=== PATIENT | male | born 1945 | race Caucasian/White ===

== ENCOUNTER 2018-08-18 08:14 | Day surgery (SDC) | payer MEDICARE ==
--- NOTE | 2018-02-09 09:36 | HP ---
PREOPERATIVE HISTORY AND PHYSICAL: DATE OF ADMISSION/SURGERY: 02/24/18 DATE OF OFFICE VISIT/ENCOUNTER: 01/30/18 ATTENDING SURGEON: Ruby Nelson MD * (DICTATED BY EVER MELENDEZ) PROCEDURE: Left wrist carpal tunnel release. CHIEF COMPLAINT: Numbness and tingling in the left hand. HISTORY OF PRESENT ILLNESS: This is a 73-year-old male who complains of numbness and tingling in his left hand that has been ongoing for several years now. He had a nerve conduction study done in 2014, which showed left carpal tunnel syndrome, moderate at that time. Symptoms have increasingly worsened over time to the point that the patient would like to proceed with surgical intervention. He is awakened at night by his symptoms. He has sometimes worn a brace, which is helpful. He underwent a right carpal tunnel release back in 2014 and now will proceed with a left carpal tunnel release. The patient has a cardiac history including atrial fibrillation, he is on Coumadin. We will have him remain on Coumadin throughout the perioperative period and we will get clearance from his enologist prior to proceeding with surgery. PAST MEDICAL HISTORY: 1. Atrial fibrillation. 2. Hypertension. 3. Gout. 4. High cholesterol. 5. History of stroke approximately 20 years ago. 6. History of cardiac murmur. PAST SURGICAL HISTORY: 1. Right carpal tunnel release. 2. Pilonidal cystic excision. 3. Oral surgery. 4. Sinus surgery. 5. Melanoma lesion removed. No known anesthesia problems. CURRENT MEDICATIONS: 1. Allergy Relief 1 tab daily p.r.n. 2. Allopurinol 100 mg twice a day. 3. Aspirin 81 mg daily. 4. Atorvastatin calcium 40 mg half a tab daily. 5. Cinnamon 500 mg 2 tabs daily. 6. Clonidine HCl ER 0.1 mg twice a day. 7. Coumadin 3 mg Tuesday, Tuesday and 6 mg Tuesday, Tuesday, , and Tuesday. 8. Diltiazem CD 240 mg daily. 9. Enalapril maleate 20 mg twice a day. 10. Furosemide 20 mg daily. 11. Garlic 1000 mg twice a day. 12. [place] mont[place] 1500 mg 1 tablet twice a day. 13. [place]-3, 1000 mg twice a day. 14. Spironolactone 25 mg 1/2 tab daily. 15. Turmeric daily. 16. Vitamin C 1000 mg daily. 17. Vitamin D 1000 mg 4 drops in water daily. 18. Vitamin E 400 mg 1 tab daily. ALLERGIES: No known drug allergies. FAMILY MEDICAL HISTORY: Diabetes and prostate cancer. SOCIAL HISTORY: The patient is employed as a associate financial analyst. He is a former smoker, he quit smoking approximately 35 years ago, prior to that he smoked for approximately 10 years, 2 packs per day. He denies recreational drug use. He drinks alcohol on occasion. REVIEW OF SYSTEMS: Positive for heart palpitations, otherwise negative for general, cephalic, other cardiovascular, respiratory, GI, , other musculoskeletal, integumentary, endocrine, neurologic, and hematologic symptoms. Infectious disease: Negative for history of MRSA, hepatitis C. PHYSICAL EXAMINATION GENERAL: Well-developed, well-nourished 73-year-old male in no acute distress. VITAL SIGNS: Height 5 feet 9 inches, weight 207 pounds, pulse rate 48, and blood pressure 130/64. HEENT: Normocephalic and atraumatic. Pupils are equal, round, and reactive to light and accommodation. Extraocular movements are intact. NECK: Supple. No palpable lymph nodes. Throat is clear. PULMONARY: Lungs are clear to auscultation bilaterally. No wheezes, rales, or rhonchi. CARDIOVASCULAR: Regular rate and rhythm. S1 and S2. Mild murmur detected on auscultation. No rubs or gallops. No edema. ABDOMEN: Positive bowel sounds, soft, and nontender. MUSCULOSKELETAL: On exam of his left hand, he has some mild thenar wasting and some weakness with thumb abduction. Positive median nerve compression test at the wrist. Intact sensation to light touch in the median nerve distribution. NEUROLOGIC: Alert and oriented x3. Cranial nerves II through XII are intact. Sensation is intact to light touch. IMPRESSION: Left carpal tunnel syndrome. PLAN/RECOMMENDATIONS: The patient is scheduled to undergo a left wrist carpal tunnel release with Dr. Nelson on 02/24/18. He will return to the office 10 days postop for followup and suture removal. A prescription for Ultracet was e- scribed to the patient's pharmacy for postoperative pain management. EVER MELENDEZ [id number]/[facility] #: [id number] [place]
--- NOTE | 2018-08-15 13:15 | HP ---
PREOPERATIVE HISTORY AND PHYSICAL: DATE OF SURGERY/ADMISSION: 08/18/18 DATE OF OFFICE VISIT/ENCOUNTER: 08/03/18 ATTENDING SURGEON: Ruby Nelson MD* (dictated by EVER Arceo). PROCEDURE: Left wrist carpal tunnel release. HISTORY OF PRESENT ILLNESS: This is a 73-year-old male who complains of numbness and tingling in his left hand that has been ongoing for several years now. He had a nerve conduction study done in 2014, which showed left carpal tunnel syndrome, moderate at the time. Symptoms have increasingly worsened over time to the point that the patient would like to proceed with surgical intervention. He is awakened at night by his symptoms. He had sometimes worn a brace, which is helpful. He underwent a right carpal tunnel release back in 2014 and now will proceed with a left carpal tunnel release. The patient has a cardiac history including atrial fibrillation and he is on Coumadin. We will have him remain on Coumadin throughout the perioperative period and we will get clearance from his administrative services coordinator prior to proceeding with surgery. PAST MEDICAL HISTORY: 1. Atrial fibrillation. 2. Hypertension. 3. Gout. 4. Hypercholesterolemia. 5. History of stroke approximately 20 years ago. 6. History of cardiac murmur. PAST SURGICAL HISTORY: 1. Right carpal tunnel release. 2. Pilonidal cyst excision. 3. Oral surgery. 4. Sinus surgery. 5. Melanoma lesion removed. 6. Bilateral total hip arthroplasty. 7. Vein surgery. No known anesthesia problems. CURRENT MEDICATIONS: 1. Allergy Relief 1 tablet daily p.r.n. 2. Allopurinol 100 mg twice a day. 3. Aspirin 81 mg daily. 4. Atorvastatin calcium 40 mg half a tab daily. 5. Cinnamon 500 mg 2 tabs daily. 6. Clonidine HCl ER 0.1 mg twice a day. 7. Coumadin 3 mg Tuesday, Tuesday and 6 mg Tuesday, Tuesday, , and Tuesday. 8. Diltiazem CD 240 mg daily. 9. Enalapril maleate 20 mg twice a day. 10. Acetaminophen b.i.d. p.r.n. 11. Garlic 1000 mg twice a day. 12. [place] montano 1500 mg 1 tablet twice a day. 13. [place]-3, 1000 mg twice a day. 14. Turmeric daily. 15. Vitamin C 1000 mg daily. 16. Vitamin D 1000 mg 4 drops in water daily. 17. Vitamin E 400 mg 1 tab daily. 18. Hemp seeds 2 tablespoons daily. ALLERGIES: No known drug allergies. FAMILY MEDICAL HISTORY: Diabetes and cancer. SOCIAL HISTORY: The patient is employed as a financial solutions advisor. He is a former smoker. He quit smoking approximately 35 years ago. Prior to that, he smoked for approximately 10 years, 2 packs per day. He denies current recreational drug use. He drinks alcohol on occasion. REVIEW OF SYSTEMS: Positive for heart palpitations. Otherwise negative for general, cephalic, other cardiovascular, respiratory, GI, , other musculoskeletal, integumentary, endocrine, neurologic, and hematologic symptoms. Infectious disease: Negative for history of MRSA, hepatitis C, HIV. PHYSICAL EXAMINATION GENERAL: Well-developed, well-nourished, 73-year-old male, in no acute distress. VITAL SIGNS: Height 5 feet 9 inches, weight 204 pounds, pulse rate 64, blood pressure 138/68. HEENT: Normocephalic, atraumatic. Pupils are equal, round, and reactive to light and accommodation. Extraocular movements are intact. Throat is clear. NECK: Supple. No palpable lymph nodes. PULMONARY: Lungs are clear to auscultation bilaterally. No wheezes, rales, or rhonchi. CARDIOVASCULAR: Regular rate and rhythm. S1 and S2. Mild murmur detected on auscultation. No rubs or gallops. No edema. ABDOMEN: Positive bowel sounds, soft, and nontender. MUSCULOSKELETAL: On exam of his left hand, he has some mild thenar wasting and some weakness with thumb abduction. Positive median nerve compression test at the wrist. Intact sensation to light touch in the median nerve distribution. NEUROLOGIC: Alert and oriented x3. Cranial nerves II through XII are intact. Sensation is intact to light touch. DIAGNOSTIC STUDIES/LAB DATA: EMG, nerve conduction study in 2014 showed moderate left carpal tunnel syndrome. PLAN/RECOMMENDATIONS: The patient is scheduled to undergo a left wrist carpal tunnel release with Dr. Nelson on 08/18/18. He will return to the office 10 days postop for followup and suture removal. A prescription for Ultracet was e- scribed to the patient's pharmacy for postoperative pain management. EVER ARCEO [id number]/[facility] #: [id number] [place]
[~2018-08-18 08:14] MED LIST: Buffered Lidocaine 1% SYRIN* 1 ML/SYRINGE INTRADERM ONE; Dexamethasone TAB* 4 MG PO ONE; DiMENhydriNATE IV* 50 MG/ML VIAL IV PUSH PRN; Famotidine IV* 10 MG/ML 2 ML (20 mg) IV ONE; Lactated Ringers 1000 ML Bag* 1,000 ML IV SCH; Lidocaine 1% INJ* 10 MG/ML 30 ML SDV ONE; Naloxone* 0.4 MG/ML 1 ML VIAL IV PRN; Ondansetron TAB* 4 MG PO ONE; PROCHLORPERAZINE INJ 5 MG/ML 2 ML VIAL IV PRN; oxyCODONE/Acetamin 5/325 MG* TAB PO PRN
[2018-08-18] MEDS ORDERED: Famotidine IV* 10 MG/ML 2 ML (20 mg) ONE (08:18)
[2018-08-18] MEDS ORDERED: Ondansetron ODT TAB* 4 MG ONE (08:18)
[2018-08-18] MEDS ORDERED: Dexamethasone TAB* 4 MG ONE (08:18)
[2018-08-18] MEDS ORDERED: Midazolam* 1 MG/ML 5 ML VIAL (5 MG) ONE (09:08)
[2018-08-18] MEDS ORDERED: fentaNYL* 50 MCG/ML 2 ML VIAL (100 MCG VIAL) ONE (09:08)
[2018-08-18] MEDS ORDERED: Propofol* 10 MG/ML 20 ML BTL ONE (09:42)
[2018-08-18] MEDS ORDERED: Lidocaine 2% PF * 5 ML VIAL ONE (09:42)
[2018-08-18 10:33] VITALS: BP 107/57
--- NOTE | 2018-08-18 13:01 | OP ---
CC: Dr. Nelson OPERATIVE REPORT: DATE OF OPERATION: 08/18/18 DATE OF : 49 SURGEON: Ruby Nelson MD BLEACHING SUPERVISOR: EVER Arceo ANESTHESIA: Local MAC. PRE-OP DIAGNOSIS: Left carpal tunnel syndrome. POST-OP DIAGNOSIS: Left carpal tunnel syndrome. OPERATIVE PROCEDURE: Left carpal tunnel release. ESTIMATED BLOOD LOSS: Zero. TOURNIQUET TIME: About 8 minutes. INDICATION FOR PROCEDURE: Leander is a 73-year-old man with numbness and tingling in the median nerv e distribution of his left hand. He presents for left carpal tunnel release. DESCRIPTION OF PROCEDURE: The patient was brought to the operating room, was given a sedation anesth etic, and a local infiltration of 10 cc of 1% plain lidocaine in the palm of his left hand. Skin of his left hand and forearm was prepped and draped in the usual sterile fashion. The hand and forearm were exsanguinated and the tourniquet elevated to 250 mmHg. A longitudinal incision was made in the palm in line with the ring finger. We dissected through the subcutaneous tissue down to the transver se carpal ligament. The ligament was divided sharply with the knife and then more proximally with th e scissors. The nerve was dissected free from the surrounding tissue and there was an area of modera te compression of the mid portion of the ligament. Wound was irrigated and the skin edges were reapp roximated with 4- 0 nylon suture. The wound was dressed with Xeroform, 4x4, Webril, and an Chele wrap. The patient tolerated the procedure well and was brought to the recovery room in good condition. [id number]/[facility] #: [id number]
== END 2018-08-18 10:50 | disposition home or self-care (01) ==
LOC: OREAST 08:14
PROVIDERS: ATTEND Orthopaedic Surgery
DX: G56.02 Carpal tunnel syndrome, left upper limb (principal); I48.91 Unspecified atrial fibrillation; Z79.01 Long term (current) use of anticoagulants; I10 Essential (primary) hypertension; M10.9 Gout, unspecified; E78.00 Pure hypercholesterolemia, unspecified; Z86.73 Personal history of transient ischemic attack (TIA), and cerebral infarction without residual deficits; Z87.891 Personal history of nicotine dependence
CPT/HCPCS: A9270-GY; J2250; J2704; J3010; J8540

== ENCOUNTER 2022-03-28 07:58 | Observation (INO) ==
[2022-03-28] MEDS ORDERED: Albuterol/Ipratropium NEB.SOL (2.5/0.5 MG) 3 ML NEB.SOLN INH ONE (08:13)
[2022-03-28 08:28] LABS: PCO2 Arterial 36 mmHg (35-45); PO2 Arterial 133 mmHg (80-100)
[2022-03-28 08:29] LABS: ABS Basophils 0.1 10^3/ul (0-0.2); ABS Eosinophils 0.2 10^3/ul (0-0.6); ABS Lymphocytes 2.2 10^3/ul (1.0-4.8); ABS Monocytes 0.5 10^3/ul (0-0.8); ABS Neutrophils 8.7 10^3/ul (1.5-7.7); Eosinophil % 1.6 %; Hematocrit 35 % (42-52); Hemoglobin 11.3 g/dL (14.0-18.0); Lymphocyte % 18.5 %; Mean Corpuscular HGB Conc 32 g/dL (31-36); Mean Corpuscular Hemoglobin 29 pg (27-31); Mean Corpuscular Volume 91 fL (80-94); Mean Platelet Volume 7.2 fL (7.4-10.4); Platelet Count 206 10^3/uL (150-450); Red Blood Count 3.89 10^6 /uL (4.18-5.48); Red Cell Distribution Width 16 % (10-15); White Blood Count 11.7 10^3/uL (3.5-10.8)
[2022-03-28 08:38] LABS: Activated Partial Thrombo Time 49.7 seconds (26.0-38.0); INR 1.63 (0.89-1.11)
[2022-03-28] MEDS ORDERED: Azithromycin 500 mg/250 ml NS 500 MG/250 ML BAG IVPB ONE (08:50)
[2022-03-28] MEDS ORDERED: cefTRIAXone 1 gm/50 mL D5W 1 GM/50 ML BAG IV ONE (08:50)
[2022-03-28] MEDS ORDERED: methylPREDNISolone SOD SUCC 125 mg 2 ML VIAL IV ONE (08:51)
[2022-03-28] MEDS ORDERED: Furosemide 20 mg/2 ml IV VIAL IV ONE (08:57)
[2022-03-28 09:09] LABS: Albumin 3.8 g/dL (3.2-5.2); Albumin/Globulin Ratio 1.1 (1-3); C Reactive Protein 16.64 mg/L (<8.01); Calcium 10.9 mg/dL (8.6-10.3); Globulin 3.6 g/dL (2-4); Magnesium 1.9 mg/dL (1.9-2.7); Potassium 4.6 mmol/L (3.5-5.0); Total Bilirubin 0.8 mg/dL (0.2-1.0); Total Protein 7.4 g/dL (6.4-8.9); eGFR CKD-EPI 32.4 (>60)
[2022-03-28 09:56] LABS: High Sensitivity Troponin 1 Hr 227 pg/mL (<20)
[2022-03-28 10:30] LABS: Urine Appearance Clear; Urine Bilirubin Negative (Negative); Urine Blood Negative (Negative); Urine Color Yellow; Urine Glucose Negative (Negative); Urine Ketones Negative (Negative); Urine Nitrite Negative (Negative); Urine Protein 1+(30 mg/dL) (Negative); Urine Specific Gravity 1.015 (1.002-1.030); Urine Urobilinogen Negative (Negative)
[2022-03-28 10:40] LABS: PCO2 Arterial 34 mmHg (35-45); PO2 Arterial 93 mmHg (80-100)
[2022-03-28 10:56] LABS: Urine Bacteria Absent (Absent); Urine Red Blood Cell Trace(0-2/hpf) (Absent); Urine White Blood Cell Trace(0-5/hpf) (Absent)
[2022-03-28] MEDS ORDERED: Warfarin DAILY REMINDER **NOTE FOLLOW UP SCH (17:00)
[2022-03-28] MEDS ORDERED: Aspirin EC 81 mg TAB.EC (enteric coated) PO SCH (17:00)
[2022-03-28] MEDS: Furosemide 20 mg/2 ml IV VIAL IV SCH (20:40)
[2022-03-28] MEDS ORDERED: Polyethylene Glycol 3350 17 GM PACKET PO PRN (20:50)
[2022-03-29 06:32] LABS: ABS Lymphocytes 0.4 10^3/ul (1.0-4.8); ABS Monocytes 0.3 10^3/ul (0-0.8); ABS Neutrophils 10.7 10^3/ul (1.5-7.7); Hematocrit 27 % (42-52); Hemoglobin 8.7 g/dL (14.0-18.0); Lymphocyte % 3.8 %; Mean Corpuscular HGB Conc 33 g/dL (31-36); Mean Corpuscular Hemoglobin 29 pg (27-31); Mean Corpuscular Volume 90 fL (80-94); Mean Platelet Volume 7.5 fL (7.4-10.4); Platelet Count 175 10^3/uL (150-450); Red Blood Count 2.95 10^6 /uL (4.18-5.48); Red Cell Distribution Width 16 % (10-15); White Blood Count 11.4 10^3/uL (3.5-10.8)
[2022-03-29 07:06] LABS: Calcium 10.3 mg/dL (8.6-10.3); Magnesium 1.8 mg/dL (1.9-2.7); Potassium 5.1 mmol/L (3.5-5.0); eGFR CKD-EPI 30.1 (>60)
[2022-03-29] MEDS: Furosemide 20 mg/2 ml IV VIAL IV SCH (08:22)
[2022-03-29] MEDS ORDERED: cefTRIAXone 1 gm/50 mL D5W 1 GM/50 ML BAG IV SCH (12:30)
[2022-03-29] MEDS ORDERED: Azithromycin 500 mg/250 ml NS 500 MG/250 ML BAG IVPB SCH (13:00)
[2022-03-29] MEDS ORDERED: Azithromycin IV 500 MG in NS 0.9% 250 ml 250 ML IVPB SCH (13:00)
[2022-03-29] MEDS ORDERED: Warfarin per PHARMACY **NOTE FOLLOW UP SCH (13:00)
[2022-03-29 13:18] LABS: Hematocrit 30 % (42-52); Hemoglobin 9.6 g/dL (14.0-18.0)
[2022-03-29 13:24] LABS: INR 2.12 (0.89-1.11)
[2022-03-29 16:06] VITALS: BP 137/75
== END 2022-03-29 18:30 | disposition home or self-care (01) ==
LOC: ED 07:58 → EDHOLD 07:58 → MED 17:20
PROVIDERS: ADMIT Family Medicine; ATTEND Family Medicine

== ENCOUNTER 2023-07-08 16:15 | Observation (INO) ==
[2023-07-08 16:59] LABS: INR 1.39 (0.83-1.13)
[2023-07-08 17:02] LABS: ABS Eosinophils 0.2 10^3/uL (0.0-0.5); ABS Lymphocytes 1.5 10^3/uL (1.0-4.8); ABS Monocytes 0.5 10^3/uL (0.0-1.1); ABS Neutrophils 4.2 10^3/uL (1.5-7.6); ABS Nucleated RBC 0.01 10^3/ul; Eosinophil % 2.9 %; Hematocrit 35.4 % (38-53); Hemoglobin 12.2 g/dL (13.2-16.3); Lymphocyte % 23.6 %; Mean Corpuscular Hemoglobin 33.9 pg (27-33); Mean Corpuscular Hgb Conc 34.5 g/dL (31-36); Mean Corpuscular Volume 98.4 fL (80-97); Mean Platelet Volume 7.3 fL (7.5-11.2); Nucleated Red Blood Cells % 0.1 %/100WBC (0.0-0.8); Platelet Count 103 10^3/uL (150-450); White Blood Count 6.5 10^3/uL (3.6-10.2)
[2023-07-08 18:00] LABS: Calcium 10.6 mg/dL (8.6-10.3); Creatinine, Serum 3.03 mg/dL (0.67-1.17); Globulin 3.9 g/dL (2-4); Potassium 3.9 mmol/L (3.5-5.0); Total Bilirubin 1.2 mg/dL (0.2-1.0); Total Protein 7.9 g/dL (6.4-8.9); eGFR CKD-EPI 20.6 (>60)
[2023-07-08 18:28] LABS: High Sensitivity Troponin 1 Hr 220 pg/mL (<20)
[2023-07-09 04:34] LABS: TSH Ultra Thyroid Stim Horm 1.81 mcIU/mL (0.34-5.60)
[2023-07-09 18:05] VITALS: BP 117/64
== END 2023-07-09 21:30 | disposition home or self-care (01) ==
LOC: EDHOLD 16:15 → ED 16:15 → SUATTDRO 23:40 → MEDTELE 07-09 01:00
PROVIDERS: ADMIT Internal Medicine; ATTEND Hospitalist